=== PATIENT | male | born 1960 | race Caucasian/White ===

== ENCOUNTER 2024-11-29 17:52 | Inpatient (IN) | payer OTHER ==
[2024-11-29] MEDS ORDERED: ACETAMINOPHEN INJECTION 100 ML ONE (20:24)
[2024-11-29] MEDS: SODIUM CHLORIDE 1,000 ML IV STA (20:28)
[2024-11-29] MEDS: ACETAMINOPHEN 1000 MG/100 ML BAG IVPB ONE (20:28)
[2024-11-29 20:33] LABS: BASO % 0.2 % (0-2.0); HEMATOCRIT 46.9 % (35.4-49); HEMOGLOBIN 16.1 GM/dL (11.7-16.9); LYMPH % 4.3 % (8-40); MCH 30.3 pg (25.7-33.7); MCHC 34.3 g/dl (32.0-35.9); MEAN CELL VOLUME 88.4 fl (80-96); MONO % 4.9 % (3.8-10.2); NEUT % 90.6 % (42.8-82.8); PLATELET COUNT 240 10^3/uL (134-434); RBC 5.31 M/mm3 (4.00-5.60); RDW 13.5 % (11.9-15.9)
[2024-11-29 20:41] LABS: INR 1.77 (0.83-1.09); PROTHROMBIN TIME (PATIENT) 19.7 SEC (9.7-13.0); WHITE BLOOD COUNT 31.9 K/mm3 (4.0-10.0)
[2024-11-29 20:44] LABS: ACTIVATED PTT 39.4 SECONDS (25.2-36.5)
[2024-11-29 21:03] LABS: POTASSIUM 4.4 mmol/L (3.5-5.1)
[2024-11-29 21:05] LABS: CALCIUM 9.5 mg/dL (8.5-10.1)
[2024-11-29 21:06] LABS: PLATELET ESTIMATE ADEQUATE
[2024-11-29 21:09] LABS: CREATININE 1.1 mg/dL (0.55-1.3)
[2024-11-29 21:10] LABS: BILIRUBIN,TOTAL 3.1 mg/dL (0.2-1); TOT PROT 7.5 g/dl (6.4-8.2)
[2024-11-29] MEDS ORDERED: PIPERACILLIN/TAZOB 4.5 GM 4.5 GM/100 ML BAG IVPB ONE (21:25)
[2024-11-29] MEDS: PIPERACILLIN/TAZOB 4.5 GM 4.5 GM in DEXTROSE 5%-WATER 100 ML IVPB ONE (21:37)
[2024-11-30] MEDS ORDERED: PANTOPRAZOLE SODIUM 40 MG VIAL ONE (00:22)
[2024-11-30] MEDS: PANTOPRAZOLE SODIUM 40 MG VIAL IVPUSH SCH (00:40)
[2024-11-30] MEDS ORDERED: METOPROLOL TARTRATE 5 MG/5 ML VIAL IVPUSH PRN (00:57)
[2024-11-30] MEDS: LACTATED RINGERS SOLUTION 1,000 ML/1,000 ML INFUS.BAG IV SCH ×2 (03:18→13:13)
[2024-11-30] MEDS: INSULIN ASPART SLIDING SCALE (NOVOLOG) 1 VIAL SQ SCH (04:41)
[2024-11-30] MEDS: HEPARIN NA (PORCINE) 5,000 UNITS/ML 1ML VIAL SQ SCH (04:41)
[2024-11-30 08:45] LABS: HEMATOCRIT 42.1 % (35.4-49); HEMOGLOBIN 14.7 GM/dL (11.7-16.9); MCH 30.9 pg (25.7-33.7); MEAN CELL VOLUME 88.2 fl (80-96); MEAN PLT VOLUME 8.1 fl (7.5-11.1); PLATELET COUNT 187 10^3/uL (134-434); RBC 4.77 M/mm3 (4.00-5.60); RDW 13.7 % (11.9-15.9); WHITE BLOOD COUNT 25.8 K/mm3 (4.0-10.0)
[2024-11-30] MEDS ORDERED: PIPERACILLIN/TAZOB 4.5 GM 4.5 GM in DEXTROSE 5%-WATER 100 ML IVPB SCH (09:00)
[2024-11-30 09:12] LABS: BLOOD UREA NITROGEN 16.8 mg/dL (7-18)
[2024-11-30] MEDS: ACETAMINOPHEN 1000 MG/100 ML BAG IVPB PRN (09:14)
[2024-11-30 09:16] LABS: CREATININE 0.9 mg/dL (0.55-1.3)
[2024-11-30 09:29] LABS: ANISOCYTOSIS 0; MACROCYTOSIS 0
[2024-11-30] MEDS: PIPERACILLIN/TAZOB 4.5 GM 4.5 GM/100 ML BAG IVPB SCH ×2 (09:48→22:37)
[2024-11-30 10:07] LABS: ALBUMIN 3.7 g/dl (3.4-5.0)
[2024-11-30 10:13] LABS: BILIRUBIN,TOTAL 2.4 mg/dL (0.2-1); TOT PROT 6.8 g/dl (6.4-8.2)
[2024-11-30] MEDS ORDERED: oxyCODONE HCL 5 MG TABLET PO PRN (10:59)
[2024-11-30] MEDS ORDERED: INDOCYANINE GREEN 25 MG/10 ML VIAL IVPUSH ONE (15:22)
[2024-11-30] MEDS ORDERED: BUPIVACAINE HCL/PF 0.25% (2.5MG/ML) 10 ML VIAL ONE (16:29)
[2024-11-30] MEDS ORDERED: LACTATED RINGERS SOLUTION 1,000 ML/1,000 ML INFUS.BAG IV SCH ×4 (17:00→23:00)
[2024-11-30] MEDS ORDERED: MIDAZOLAM HCL 2 MG/2 ML SINGLE DOSE VIAL ONE (18:16)
[2024-11-30] MEDS ORDERED: PROPOFOL 40 ML ONE (18:20)
[2024-11-30] MEDS ORDERED: ROCURONIUM BROMIDE 50 MG/5 ML SYRINGE ONE ×2 (18:20→20:45)
[2024-11-30] MEDS: BUPIVACAINE HCL/PF 0.25% (2.5MG/ML) 10 ML VIAL IJ ONE (18:56)
[2024-11-30] MEDS ORDERED: NEOSTIGMINE METHYLSULFATE 0.5 MG/1 ML - 10 ML MDV ONE (21:20)
[2024-11-30] MEDS ORDERED: INSULIN (LEVEMIR) 100 UNITS/ML UNITS SQ SCH (22:00)
[2024-11-30] MEDS ORDERED: ONDANSETRON 4 MG/2 ML VIAL IVPUSH PRN ×2 (22:00→22:04)
[2024-11-30] MEDS: METOPROLOL TARTRATE 5 MG/5 ML VIAL IVPUSH PRN (22:05)
[2024-11-30] MEDS ORDERED: METOPROLOL TARTRATE 5 MG/5 ML VIAL IVPB PRN (22:06)
[2024-11-30] MEDS: ACETAMINOPHEN 1000 MG/100 ML BAG IVPB SCH (22:15)
[2024-11-30] MEDS ORDERED: ACETAMINOPHEN INJECTION 100 ML ONE (22:17)
[2024-11-30] MEDS: SODIUM CHLORIDE 1,000 ML IV SCH (22:59)
[2024-12-01 00:29] VITALS: BMI 27.6
[2024-12-01] MEDS: PIPERACILLIN/TAZOB 4.5 GM 4.5 GM/100 ML BAG IVPB SCH (01:03)
[2024-12-01] MEDS ORDERED: KETOROLAC TROMETHAMINE 15 MG/ML VIAL IVPUSH PRN (03:00)
[2024-12-01] MEDS: INSULIN (LEVEMIR) 100 UNITS/ML UNITS SQ SCH (06:32)
[2024-12-01] MEDS: INSULIN ASPART SLIDING SCALE (NOVOLOG) 1 VIAL SQ SCH (06:33)
[2024-12-01 08:02] LABS: HEMATOCRIT 38.7 % (35.4-49); HEMOGLOBIN 12.8 GM/dL (11.7-16.9); LYMPH % 6.9 % (8-40); MCH 29.8 pg (25.7-33.7); MCHC 33.1 g/dl (32.0-35.9); MEAN CELL VOLUME 90.1 fl (80-96); MEAN PLT VOLUME 8.5 fl (7.5-11.1); NEUT % 88.1 % (42.8-82.8); PLATELET COUNT 168 10^3/uL (134-434); RBC 4.29 M/mm3 (4.00-5.60); WHITE BLOOD COUNT 15.7 K/mm3 (4.0-10.0)
[2024-12-01 08:24] LABS: POTASSIUM 4.1 mmol/L (3.5-5.1)
[2024-12-01 08:30] LABS: BILIRUBIN,DIRECT 0.6 mg/dL (0.0-0.2); CALCIUM 7.9 mg/dL (8.5-10.1)
[2024-12-01 08:31] LABS: ALBUMIN 2.5 g/dl (3.4-5.0); BLOOD UREA NITROGEN 18.8 mg/dL (7-18)
[2024-12-01 08:34] LABS: CREATININE 0.9 mg/dL (0.55-1.3)
[2024-12-01 08:35] LABS: BILIRUBIN,TOTAL 1.1 mg/dL (0.2-1)
[2024-12-01 08:36] LABS: TOT PROT 5.2 g/dl (6.4-8.2)
[2024-12-01] MEDS ORDERED: LACTATED RINGERS SOLUTION 1,000 ML/1,000 ML INFUS.BAG IV SCH (09:00)
[2024-12-01] MEDS: HEPARIN NA (PORCINE) 5,000 UNITS/ML 1ML VIAL SQ SCH (09:43)
[2024-12-01] MEDS: PANTOPRAZOLE SODIUM 40 MG VIAL IVPUSH SCH (09:43)
[2024-12-01] MEDS ORDERED: INSULIN (LEVEMIR) 100 UNITS/ML UNITS SQ SCH (10:00)
[2024-12-02] MEDS: morphine SULFATE 4 MG/ML VIAL IVPUSH PRN (01:02)
[2024-12-02 07:38] LABS: BASO % 0.1 % (0-2.0); EOS % 0.3 % (0-4.5); HEMATOCRIT 40.6 % (35.4-49); HEMOGLOBIN 13.6 GM/dL (11.7-16.9); LYMPH % 10.4 % (8-40); MCH 30.1 pg (25.7-33.7); MCHC 33.4 g/dl (32.0-35.9); MEAN CELL VOLUME 90.1 fl (80-96); MEAN PLT VOLUME 7.8 fl (7.5-11.1); MONO % 5.4 % (3.8-10.2); NEUT % 83.8 % (42.8-82.8); PLATELET COUNT 252 10^3/uL (134-434); RBC 4.51 M/mm3 (4.00-5.60); RDW 13.9 % (11.9-15.9); WHITE BLOOD COUNT 13.4 K/mm3 (4.0-10.0)
[2024-12-02 07:49] LABS: POTASSIUM 3.8 mmol/L (3.5-5.1)
[2024-12-02 07:56] LABS: BLOOD UREA NITROGEN 19.7 mg/dL (7-18)
[2024-12-02 07:57] LABS: ALBUMIN 2.5 g/dl (3.4-5.0)
[2024-12-02 07:59] LABS: CREATININE 0.9 mg/dL (0.55-1.3)
[2024-12-02 08:01] LABS: BILIRUBIN,TOTAL 0.8 mg/dL (0.2-1)
[2024-12-02 08:04] LABS: TOT PROT 5.4 g/dl (6.4-8.2)
[2024-12-02] MEDS: APIXABAN 5 MG TABLET PO SCH (11:36)
[2024-12-02] MEDS: metoPROLOL SUCCINATE 25 MG TAB.SR.24H (FP) PO SCH (11:36)
[2024-12-02] MEDS ORDERED: METOPROLOL TARTRATE 25 MG TABLET (FP) PO ONE (18:38)
[2024-12-02] MEDS ORDERED: LOSARTAN POTASSIUM 50 MG TABLET PO ONE (18:39)
[2024-12-02] MEDS: METOPROLOL TARTRATE 25 MG TABLET (FP) PO ONE (21:24)
[2024-12-02] MEDS: LOSARTAN POTASSIUM 50 MG TABLET PO ONE (21:24)
[2024-12-03 08:26] LABS: BASO % 0.1 % (0-2.0); HEMATOCRIT 43.8 % (35.4-49); HEMOGLOBIN 15.2 GM/dL (11.7-16.9); MCH 30.6 pg (25.7-33.7); MCHC 34.7 g/dl (32.0-35.9); MEAN PLT VOLUME 7.4 fl (7.5-11.1); MONO % 8.2 % (3.8-10.2); NEUT % 73.7 % (42.8-82.8); PLATELET COUNT 293 10^3/uL (134-434); RBC 4.98 M/mm3 (4.00-5.60); RDW 13.7 % (11.9-15.9); WHITE BLOOD COUNT 11.4 K/mm3 (4.0-10.0)
[2024-12-03 08:42] LABS: POTASSIUM 3.9 mmol/L (3.5-5.1)
[2024-12-03 09:00] LABS: ALBUMIN 2.4 g/dl (3.4-5.0); BLOOD UREA NITROGEN 20.3 mg/dL (7-18)
[2024-12-03 09:02] LABS: CALCIUM 8.2 mg/dL (8.5-10.1)
[2024-12-03 09:03] LABS: CREATININE 0.8 mg/dL (0.55-1.3)
[2024-12-03 09:05] LABS: TOT PROT 5.4 g/dl (6.4-8.2)
[2024-12-03] MEDS: PANTOPRAZOLE 40 MG TABLET PO SCH (11:58)
[2024-12-03] MEDS: LOSARTAN POTASSIUM 50 MG TABLET PO SCH (12:17)
[2024-12-03] MEDS: sitaGLIPtin PHOSPHATE 50 MG TABLET PO SCH (12:17)
[2024-12-03 14:50] VITALS: BP 134/88; PULSE 79; RESP 18; TEMP 98.4
[2024-12-03] MEDS: AMOX TR/POT CLAV 875MG/125MG TABLETS (FP) PO SCH (18:04)
== END 2024-12-03 17:51 | disposition home or self-care (01) | DRG 418 ==
LOC: JER 17:52 → JERBED 20:44 → J7W 11-30 02:06 → J4W 12-01 00:38
PROVIDERS: ADMIT Internal Medicine; ATTEND Internal Medicine
PROC: 0DNW4ZZ Release Peritoneum, Percutaneous Endoscopic Approach (ICD-10-PCS; 2024-11-30)
PROC: 8E0W4CZ Robotic Assisted Procedure of Trunk Region, Percutaneous Endoscopic Approach (ICD-10-PCS; 2024-11-30)
PROC: 0FT44ZZ Resection of Gallbladder, Percutaneous Endoscopic Approach (ICD-10-PCS; principal; 2024-11-30 13:00)
DX: K80.00 Calculus of gallbladder with acute cholecystitis without obstruction (principal); E87.1 Hypo-osmolality and hyponatremia; I10 Essential (primary) hypertension; D72.829 Elevated white blood cell count, unspecified; I48.91 Unspecified atrial fibrillation; N28.1 Cyst of kidney, acquired; E11.65 Type 2 diabetes mellitus with hyperglycemia; I71.9 Aortic aneurysm of unspecified site, without rupture; K82.A1 Gangrene of gallbladder in cholecystitis; K66.0 Peritoneal adhesions (postprocedural) (postinfection)
CPT/HCPCS: 0241U-QW; 36415; 74177-TC; 74181-TC; 76705-TC; 80048; 80053; 80076; 82248; 82962; 83036; 83690; 85025; 85610; 85730; 86140; 86850; 86900; 86901; 88304-TC; 93005; 93010; 93306-TC; 94010; 94760; 99285-25; J0131; J1644